=== PATIENT | male | born 1980 | race Caucasian/White ===

== ENCOUNTER 2020-12-02 04:35 | Emergency (ER) | payer MEDICAID, SELFPAY ==
[~2020-12-02] VITALS: Ht 180.3 cm; Wt 90.7 kg
[2020-12-02 05:00] VITALS: BP_SYST 158
--- NOTE | 2020-12-02 05:00 | NUR ---
Patient brought in by friend, alert, awake, oriented x 4 c/o on and off fever, headache, bodyaches, abdominal cramps x 3 days. Patient denied sore throat, cough and any cold symptoms. Patient has been taking Ibuprofen, last dose 2 hours ago. Patient stated he's feeling dehydrated. Patient mildly anxious, breathing easy, non labored. Patient made comfortable in bed, side rails up x 2, Awaiting ER MD to [facility].
--- NOTE | 2020-12-02 05:20 | NUR ---
ER at bedside examining patient.
[2020-12-02] MEDS ORDERED: PANTOPRAZOLE SODIUM 40 MG/VIAL (PROTONIX) IVP ONE (05:30)
[2020-12-02] MEDS ORDERED: ONDANSETRON HCL 4 MG/2 ML VIAL IVP ONE (05:30)
[2020-12-02] MEDS ORDERED: NACL 0.9% 1,000 ML IV ONE (05:30)
--- NOTE | 2020-12-02 06:14 | NUR ---
Blood drawn by phleb for ordered labs
--- NOTE | 2020-12-02 06:20 | NUR ---
Specimen for Covid-19 (Novel Coronavirus) collected and sent to lab.
--- NOTE | 2020-12-02 06:20 | NUR ---
PAtient c/o headache 08/30 PS. ER aware
[2020-12-02 06:26] LABS: BASOPHILS % (AUTO) 0.6 % (0.0-2.0); EOSINOPHILS % (AUTO) 0.1 % (0.0-4.0); HEMATOCRIT 44.8 % (36-54); LYMPHOCYTES % (AUTO) 17.1 % (20.5-51.5); MEAN CORPUSCULAR HEMOGLOBIN 28 pg (27-31); MEAN CORPUSCULAR HGB CONC 34 % (32-36); MEAN CORPUSCULAR VOLUME 84 fL (79.0-98.0); MONOCYTES # (AUTO) 0.9 K/uL (0.0-1.0); MONOCYTES % (AUTO) 15.5 % (1.7-9.3); NEUTROPHILS # (AUTO) 4.1 K/uL (1.8-7.7); NEUTROPHILS % (AUTO) 66.7 % (40.0-70.0); PLATELET COUNT (AUTO) 161 K/uL (130-430); RED BLOOD CELL COUNT(AUTO) 5.36 MIL/uL (4.2-6.2); RED CELL DISTRIBUTION WIDTH 14.1 % (9.0-15.0); WHITE BLOOD COUNT (AUTO) 6.1 K/uL (4.8-10.8)
[2020-12-02] MEDS ORDERED: KETOROLAC TROMETHAMINE 30 MG VIAL IVP ONE (06:30)
[2020-12-02] MEDS ORDERED: KETOROLAC TROMETHAMINE 30 MG VIAL ONE (06:33)
[2020-12-02 06:34] LABS: CALCIUM 8.2 mg/dL (8.4-11.0); CREATININE 1.14 mg/dL (0.55-1.30); POTASSIUM 3.8 mmol/L (3.5-5.1)
[2020-12-02 06:39] LABS: TOTAL BILIRUBIN 0.9 mg/dL (0.0-1.0)
[2020-12-02 07:33] VITALS: BP_SYST 145
--- NOTE | 2020-12-02 07:33 | NUR ---
Patient given written and verbal discharge instructions and verbalizes understanding. ER MD discussed with patient the results and treatment provided. Patient in stable condition. ID arm band removed. IV catheter removed intact and dressing applied, no active bleeding. No Rx of given. Patient educated on pain management and to follow up with PMD. Pain Scale 2/10. Opportunity for questions provided and answered.
== END 2020-12-02 07:33 | disposition home or self-care (01) ==
LOC: SED 04:35
DX: A08.4 Viral intestinal infection, unspecified (principal); R50.9 Fever, unspecified; R51.9 Headache, unspecified; I10 Essential (primary) hypertension; E78.5 Hyperlipidemia, unspecified; F17.200 Nicotine dependence, unspecified, uncomplicated; F12.90 Cannabis use, unspecified, uncomplicated; Z20.822 Contact with and (suspected) exposure to COVID-19
CPT/HCPCS: 80053; 85025; 96361; 96374; 96375; 99284; C9113; C9803; J1885; J2405; J7030; U0003